=== PATIENT | male | born 1965 | race Caucasian/White ===

== ENCOUNTER → 2016-05-24 | Outpatient (CLI) | payer BC ==
[~2016-05-24] MED LIST: DESYREL 100MG100 MG PO; GOOD NEIGHBOR200 M1 PO; MAXALT10 M2 PO; NO HOME MEDICATIONS; PREDNISONE20 M1 PO; TYLENOL 325MG325 MG PO
[2016-05-24 11:06] VITALS: BP 135/78
[2016-05-24 12:30] VITALS: BP 125/74
--- NOTE | 2016-05-24 13:17 | NUR ---
BENADRYL 50MG WAS GIVEN A CONCURENT INFUSION
== END ==
LOC: AMSURD 11:03
DX: G43.909 Migraine, unspecified, not intractable, without status migrainosus (principal)
CPT/HCPCS: J1200; J2930; J7030

== ENCOUNTER 2016-05-27 10:53 | Emergency (ER) | payer BC ==
[~2016-05-27 10:53] MED LIST changes: -DESYREL 100MG100 MG PO
[2016-05-27] MEDS ORDERED: DESYREL 100MG100 MG PO (13:41)
== END 2016-05-27 14:32 | disposition home or self-care (01) ==
LOC: ED 10:53
DX: R51 Headache (principal); G47.00 Insomnia, unspecified; S06.0X9D Concussion with loss of consciousness of unspecified duration, subsequent encounter
CPT/HCPCS: J1885

== ENCOUNTER → 2016-05-29 | Outpatient (CLI) | payer BC ==
[~2016-05-29] MED LIST changes: +DESYREL 100MG100 MG PO
== END ==
LOC: LAB 11:44
DX: G43.711 Chronic migraine without aura, intractable, with status migrainosus (principal); R20.2 Paresthesia of skin; K90.89 Other intestinal malabsorption

== ENCOUNTER → 2016-06-03 | Outpatient (CLI) | payer BC | LOC: RAD 14:36 | DX: M54.2 Cervicalgia (principal) ==

== ENCOUNTER 2016-07-24 14:55 | Outpatient (RCR) | payer BC ==
[2016-05-27 14:32] VITALS: BP 141/81
== END 2016-08-22 13:09 | disposition home or self-care (01) ==
LOC: PT 14:55
DX: M79.1 Myalgia (principal); M54.2 Cervicalgia

== ENCOUNTER → 2017-02-10 | Outpatient (CLI) | payer BC ==
[2016-05-27 14:32] VITALS: BP 141/81
[2017-02-10 15:46] LABS: EOS # 0.1 (0.04-0.40); HEMATOCRIT 38.9 % (42.0-52.0); HEMOGLOBIN 12.8 g/dL (13.5-18.0); LYMPH# 1.3 (1.50-4.00); MEAN CELL VOLUME 94 fl (78-100); MEAN CORPUSCULAR HEMOGLOBIN 31 pg (27-31); MEAN CORPUSCULAR HGB CONC 33 g/dL (33-37); MEAN PLATELET VOLUME 10.1 fl (7.4-10.4); MONO # 0.6 (0.20-0.80); NEU # 3.1 (1.40-6.50); PLATELET COUNT 228 K/mm3 (130-400); RED BLOOD COUNT 4.14 M/mm3 (4.20-5.60); WHITE BLOOD COUNT 5.1 K/mm3 (4.8-10.8)
[2017-02-10 15:59] LABS: ALBUMIN 3.8 g/dL (3.5-5.0); BUN/CREATININE RATIO 19.6 (6.0-26.0); CALCIUM 9.1 mg/dL (8.4-10.2); TOTAL BILIRUBIN 0.5 mg/dL (0.2-1.3); TOTAL PROTEIN 7.1 g/dL (6.3-8.2)
[2017-02-10 18:05] LABS: ERYTHROCYTE SEDIMENTATION RATE 5 mm/hr (0-15)
== END ==
LOC: RAD 13:00
PROVIDERS: Internal Medicine
DX: M47.812 Spondylosis without myelopathy or radiculopathy, cervical region (principal); M54.12 Radiculopathy, cervical region; R20.2 Paresthesia of skin; G43.711 Chronic migraine without aura, intractable, with status migrainosus
CPT/HCPCS: A9585

== ENCOUNTER → 2017-02-28 | Outpatient (CLI) | payer BC ==
[2016-05-27 14:32] VITALS: BP 141/81
== END ==
LOC: RAD 07:40
DX: M79.642 Pain in left hand (principal)

== ENCOUNTER → 2017-11-17 | Outpatient (CLI) | payer BC ==
[2016-05-27 14:32] VITALS: BP 141/81
== END ==
LOC: RAD 16:52
DX: M77.32 Calcaneal spur, left foot (principal)

== ENCOUNTER → 2017-12-16 | Outpatient (CLI) | payer BC ==
[2016-05-27 14:32] VITALS: BP 141/81
== END ==
LOC: LAB 15:54
DX: L72.3 Sebaceous cyst (principal)

== ENCOUNTER → 2018-07-30 | Outpatient (CLI) | payer BC ==
[2018-07-22 13:51] VITALS: BP 134/79
[2018-07-30 23:36] LABS: TESTOSTERONE 276 ng/dL (221-716)
== END ==
LOC: LAB 08:11
PROVIDERS: Internal Medicine
DX: N52.9 Male erectile dysfunction, unspecified (principal); R53.1 Weakness; R20.2 Paresthesia of skin

== ENCOUNTER → 2019-03-26 | Outpatient (CLI) | payer OTHER ==
[2018-07-22 13:51] VITALS: BP 134/79
== END | disposition home or self-care (01) ==
LOC: RAD 17:07
DX: M79.642 Pain in left hand (principal)

== ENCOUNTER 2020-03-28 08:00 | Outpatient (RCR) | payer BC ==
[2018-07-22 13:51] VITALS: BP 134/79
== END 2020-04-03 | disposition home or self-care (01) ==
LOC: PT
DX: M47.812 Spondylosis without myelopathy or radiculopathy, cervical region (principal); M47.814 Spondylosis without myelopathy or radiculopathy, thoracic region; M47.816 Spondylosis without myelopathy or radiculopathy, lumbar region
CPT/HCPCS: G0283-GP

== ENCOUNTER → 2020-10-06 | Outpatient (CLI) | payer BC ==
[~2020-10-06] MED LIST changes: +LEVOFLOXACIN750 MG PO; +PROAIR HFA0.09 MG/AC IH; +VITAMIN D21250 MCG PO
[2020-10-06 11:30] LABS: ALBUMIN 4.2 g/dL (3.5-5.0)
[2020-10-06 11:31] LABS: POTASSIUM 4.6 mmol/L (3.5-5.1)
[2020-10-06 11:32] LABS: CALCIUM 9.1 mg/dL (8.3-10.5)
[2020-10-06 11:33] LABS: BASO # 0.03 (0.02-0.10); EOS # 0.16 (0.04-0.40); EOS % 2.7 % (0.0-4.0); HEMATOCRIT 43.8 % (42.0-52.0); HEMOGLOBIN 14.6 g/dL (13.5-18.0); LYMPH# 1.38 (1.50-4.00); MEAN CELL VOLUME 91 fl (78-100); MEAN CORPUSCULAR HEMOGLOBIN 31 pg (27-31); MEAN CORPUSCULAR HGB CONC 33 g/dL (33-37); MEAN PLATELET VOLUME 9.5 fl (7.4-10.4); MONO # 0.49 (0.20-0.80); NEU # 3.94 (1.40-6.50); PLATELET COUNT 236 K/mm3 (130-400); RED BLOOD COUNT 4.79 M/mm3 (4.20-5.60); RED CELL DISTRIBUTION WIDTH 12.9 % (11.5-14.5); TOTAL PROTEIN 7.6 g/dL (6.4-8.3)
[2020-10-06 11:35] LABS: TOTAL BILIRUBIN 0.4 mg/dL (0.2-1.2)
[2020-10-06 11:58] LABS: URINE APPEARANCE CLEAR; URINE BILIRUBIN NEGATIVE (NEGATIVE); URINE BLOOD 50 ery/uL (NEGATIVE); URINE COLOR YELLOW; URINE GLUCOSE NEGATIVE (NEGATIVE); URINE KETONE NEGATIVE (NEGATIVE); URINE LEUKOCYTE ESTERASE NEGATIVE (NEGATIVE); URINE NITRATE NEGATIVE (NEGATIVE); URINE PROTEIN(semi-quant) NEGATIVE (NEGATIVE); URINE UROBILINOGEN NORMAL (NORMAL); URINE WBC 0-1 /hpf (0-3)
== END ==
LOC: LAB 10:53
PROVIDERS: Nurse Practitioner
DX: R10.9 Unspecified abdominal pain (principal); R73.09 Other abnormal glucose

== ENCOUNTER → 2020-10-09 | Outpatient (CLI) | payer BC | LOC: RAD 09:38 | DX: K76.89 Other specified diseases of liver (principal) ==

== ENCOUNTER → 2020-10-30 | Outpatient (CLI) | payer BC | LOC: LAB 16:07 | DX: U07.1 COVID-19 (principal) ==

== ENCOUNTER 2020-11-06 09:25 | Emergency (ER) | payer BC ==
[~2020-11-06 09:25] MED LIST changes: -LEVOFLOXACIN750 MG PO; -PROAIR HFA0.09 MG/AC IH; -VITAMIN D21250 MCG PO
[2020-11-06 10:12] LABS: BASO # 0.01 (0.02-0.10); EOS # 0.02 (0.04-0.40); EOS % 0.4 % (0.0-4.0); HEMATOCRIT 46.4 % (42.0-52.0); HEMOGLOBIN 15.3 g/dL (13.5-18.0); MEAN CELL VOLUME 91 fl (78-100); MEAN CORPUSCULAR HEMOGLOBIN 30 pg (27-31); MEAN CORPUSCULAR HGB CONC 33 g/dL (33-37); MEAN PLATELET VOLUME 9.3 fl (7.4-10.4); MONO # 0.38 (0.20-0.80); NEU # 3.64 (1.40-6.50); PLATELET COUNT 233 K/mm3 (130-400); RED BLOOD COUNT 5.11 M/mm3 (4.20-5.60); RED CELL DISTRIBUTION WIDTH 12.9 % (11.5-14.5); WHITE BLOOD COUNT 4.9 K/mm3 (4.8-10.8)
[2020-11-06 10:24] LABS: ALBUMIN 3.8 g/dL (3.5-5.0); POTASSIUM 3.8 mmol/L (3.5-5.1)
[2020-11-06 10:25] LABS: CALCIUM 9.1 mg/dL (8.3-10.5)
[2020-11-06 10:26] LABS: TOTAL PROTEIN 7.5 g/dL (6.4-8.3)
[2020-11-06 10:28] LABS: TOTAL BILIRUBIN 0.7 mg/dL (0.2-1.2)
[2020-11-06 10:56] LABS: D-DIMER 0.22 mg/L FEU (0.15-0.50)
[2020-11-06 11:58] LABS: URINE APPEARANCE CLEAR; URINE BILIRUBIN NEGATIVE (NEGATIVE); URINE BLOOD 50 ery/uL (NEGATIVE); URINE COLOR YELLOW; URINE GLUCOSE NEGATIVE (NEGATIVE); URINE KETONE NEGATIVE (NEGATIVE); URINE LEUKOCYTE ESTERASE NEGATIVE (NEGATIVE); URINE NITRATE NEGATIVE (NEGATIVE); URINE PROTEIN(semi-quant) NEGATIVE (NEGATIVE); URINE UROBILINOGEN NORMAL (NORMAL); URINE WBC 0-1 /hpf (0-3)
[2020-11-06] MEDS ORDERED: PREDNISONE20 M1 PO (12:14)
[2020-11-06] MEDS ORDERED: LEVOFLOXACIN750 MG PO (12:14)
[2020-11-06 12:54] VITALS: BP 115/73
[2020-11-07] MEDS ORDERED: VITAMIN D21250 MCG PO (17:16)
[2020-11-07] MEDS ORDERED: PROAIR HFA0.09 MG/AC IH (17:17)
== END 2020-11-06 12:32 | disposition home or self-care (01) ==
LOC: ED 09:25
PROVIDERS: Nurse Practitioner
DX: U07.1 COVID-19 (principal); E66.01 Morbid (severe) obesity due to excess calories
CPT/HCPCS: J0696; J1100; J1885; J7030

== ENCOUNTER 2020-11-07 16:58 | Emergency (ER) | payer BC ==
[~2020-11-07] VITALS: Ht 170.2 cm; Wt 88.6 kg
[~2020-11-07 16:58] MED LIST changes: -PROAIR HFA0.09 MG/AC IH; -VITAMIN D21250 MCG PO
[2020-11-07] MEDS ORDERED: VITAMIN D21250 MCG PO (17:16)
[2020-11-07] MEDS ORDERED: PROAIR HFA0.09 MG/AC IH (17:17)
[2020-11-07 18:08] LABS: HEMATOCRIT 41.7 % (42.0-52.0); HEMOGLOBIN 13.5 g/dL (13.5-18.0); MEAN CELL VOLUME 93 fl (78-100); MEAN CORPUSCULAR HEMOGLOBIN 30 pg (27-31); MEAN CORPUSCULAR HGB CONC 32 g/dL (33-37); MEAN PLATELET VOLUME 9.1 fl (7.4-10.4); PLATELET COUNT 254 K/mm3 (130-400); RED CELL DISTRIBUTION WIDTH 12.8 % (11.5-14.5)
[2020-11-07 18:20] LABS: ALBUMIN 3.7 g/dL (3.5-5.0)
[2020-11-07 18:21] LABS: POTASSIUM 4.1 mmol/L (3.5-5.1); SODIUM 140 mmol/L (136-145)
[2020-11-07 18:22] LABS: PROTHROMBIN TIME 10.3 SECONDS (9.0-12.0)
[2020-11-07 18:23] LABS: GLUCOSE 221 mg/dL (75-110); TOTAL PROTEIN 7.2 g/dL (6.4-8.3)
[2020-11-07 18:24] LABS: CARBON DIOXIDE 22 mmol/L (22-29)
[2020-11-07 18:25] LABS: TOTAL BILIRUBIN 0.3 mg/dL (0.2-1.2)
[2020-11-07 18:28] LABS: AST-SGOT 41 U/L (5-34)
[2020-11-07 18:30] LABS: ALT/SGPT 55 U/L (0-55)
[2020-11-07 18:38] LABS: TROPONIN-I < 0.03 ng/mL (<0.030)
[2020-11-07 19:31] LABS: URINE APPEARANCE CLEAR; URINE BILIRUBIN NEGATIVE (NEGATIVE); URINE BLOOD 50 ery/uL (NEGATIVE); URINE COLOR YELLOW; URINE KETONE NEGATIVE (NEGATIVE); URINE LEUKOCYTE ESTERASE NEGATIVE (NEGATIVE); URINE NITRATE NEGATIVE (NEGATIVE); URINE PROTEIN(semi-quant) TRACE mg/dL (NEGATIVE); URINE UROBILINOGEN NORMAL (NORMAL); URINE WBC 0-1 /hpf (0-3)
[2020-11-07 19:43] LABS: LYMPHOCYTE 9 % (20-51); MONOCYTE 6 % (3-10); NEUTROPHILS 85 % (42-75)
[2020-11-07 19:54] VITALS: BP 143/68
== END 2020-11-07 19:58 | disposition home or self-care (01) ==
LOC: ED 16:58
PROVIDERS: Family Medicine; Physician Assistant
DX: U07.1 COVID-19 (principal); J12.82 Pneumonia due to coronavirus disease 2019; G43.909 Migraine, unspecified, not intractable, without status migrainosus; Z79.1 Long term (current) use of non-steroidal anti-inflammatories (NSAID)
CPT/HCPCS: J7030; Q9967

== ENCOUNTER → 2020-11-07 | Outpatient (CLI) | payer BC ==
[~2020-11-07] MED LIST changes: +LEVOFLOXACIN750 MG PO; +PROAIR HFA0.09 MG/AC IH; +VITAMIN D21250 MCG PO
== END ==
LOC: LAB 09:13
DX: Z01.89 Encounter for other specified special examinations (principal)

== ENCOUNTER → 2020-11-24 | Outpatient (CLI) | payer BC ==
[~2020-11-24] MED LIST changes: +PROAIR HFA0.09 MG/AC IH; +VITAMIN D21250 MCG PO
[2020-11-24 08:17] LABS: BASO # 0.03 (0.02-0.10); EOS # 0.15 (0.04-0.40); HEMATOCRIT 41.3 % (42.0-52.0); HEMOGLOBIN 13.3 g/dL (13.5-18.0); LYMPH# 1.07 (1.50-4.00); MEAN CELL VOLUME 95 fl (78-100); MEAN CORPUSCULAR HEMOGLOBIN 30 pg (27-31); MEAN CORPUSCULAR HGB CONC 32 g/dL (33-37); MONO # 0.61 (0.20-0.80); NEU # 3.18 (1.40-6.50); PLATELET COUNT 156 K/mm3 (130-400); RED BLOOD COUNT 4.37 M/mm3 (4.20-5.60); RED CELL DISTRIBUTION WIDTH 13.4 % (11.5-14.5); WHITE BLOOD COUNT 5.1 K/mm3 (4.8-10.8)
[2020-11-24 08:30] LABS: ALBUMIN 3.7 g/dL (3.5-5.0); POTASSIUM 4.1 mmol/L (3.5-5.1); SODIUM 141 mmol/L (136-145)
[2020-11-24 08:31] LABS: CALCIUM 9.2 mg/dL (8.3-10.5)
[2020-11-24 08:33] LABS: GLUCOSE 163 mg/dL (75-110); TOTAL PROTEIN 6.9 g/dL (6.4-8.3)
[2020-11-24 08:34] LABS: CARBON DIOXIDE 23 mmol/L (22-29)
[2020-11-24 08:35] LABS: TOTAL BILIRUBIN 0.3 mg/dL (0.2-1.2)
[2020-11-24 08:38] LABS: AST-SGOT 25 U/L (5-34)
[2020-11-24 08:39] LABS: ALT/SGPT 40 U/L (0-55)
[2020-11-24 08:48] LABS: TROPONIN-I < 0.03 ng/mL (<0.030)
[2020-11-24 08:49] LABS: D-DIMER 0.67 mg/L FEU (0.15-0.50)
[2020-11-24 09:32] LABS: ERYTHROCYTE SEDIMENTATION RATE 18 mm/hr (0-20)
== END ==
LOC: LAB 07:52
PROVIDERS: Internal Medicine
DX: J18.1 Lobar pneumonia, unspecified organism (principal)
CPT/HCPCS: Q9967

== ENCOUNTER → 2021-05-25 | Outpatient (CLI) | payer BC | LOC: LAB 08:53 | DX: U07.1 COVID-19 (principal) ==

== ENCOUNTER → 2021-06-18 | Outpatient (CLI) | payer BC | LOC: RAD 09:52 | DX: M75.112 Incomplete rotator cuff tear or rupture of left shoulder, not specified as traumatic (principal) ==

== ENCOUNTER 2021-07-11 10:51 | Outpatient (RCR) | payer BC | END 2021-07-28 | disposition home or self-care (01) | LOC: PT | DX: Z98.890 Other specified postprocedural states (principal) ==

== ENCOUNTER 2021-07-31 10:51 | Outpatient (RCR) | payer BC | END 2021-08-28 | disposition home or self-care (01) | LOC: PT | DX: Z98.890 Other specified postprocedural states (principal) ==

== ENCOUNTER 2021-08-31 11:00 | Outpatient (RCR) | payer BC | END 2021-09-27 | disposition still patient (30) | LOC: PT | DX: M25.512 Pain in left shoulder (principal); Z96.612 Presence of left artificial shoulder joint ==

== ENCOUNTER 2021-09-28 11:03 | Outpatient (RCR) | payer BC | END 2021-10-28 | disposition home or self-care (01) | LOC: PT | DX: Z98.890 Other specified postprocedural states (principal) ==

== ENCOUNTER 2021-10-30 07:50 | Outpatient (RCR) | payer BC | END 2021-11-28 | disposition home or self-care (01) | LOC: PT | DX: M75.102 Unspecified rotator cuff tear or rupture of left shoulder, not specified as traumatic (principal); Z96.612 Presence of left artificial shoulder joint ==

== ENCOUNTER 2021-11-30 08:22 | Outpatient (RCR) | payer BC | END 2021-12-28 | disposition home or self-care (01) | LOC: PT | DX: Z96.612 Presence of left artificial shoulder joint (principal) ==

== ENCOUNTER → 2023-04-18 | Outpatient (CLI) | payer OTHER | LOC: RAD 09:10 | DX: M16.0 Bilateral primary osteoarthritis of hip (principal); M17.11 Unilateral primary osteoarthritis, right knee; M76.892 Other specified enthesopathies of left lower limb, excluding foot ==

== ENCOUNTER 2023-05-13 08:52 | Outpatient (RCR) | payer OTHER | END 2023-05-29 | disposition home or self-care (01) | LOC: PT | DX: M25.561 Pain in right knee (principal) ==

== ENCOUNTER → 2023-09-23 | Outpatient (CLI) | payer OTHER ==
[~2023-09-23] MED LIST changes: +Iohexol 300 - 100 ML VIAL IV ONE; +LIDOCAINE IJ SCH; +MULTI IJ SCH; +Triamcinolone 40 MG/ML 1 ML VIAL IJ SCH
== END ==
LOC: RAD 07:27
DX: M25.552 Pain in left hip (principal)
CPT/HCPCS: J0665; J3301; Q9967